=== PATIENT | male | born 1960 | race Caucasian/White ===

== ENCOUNTER 2022-06-11 15:45 | Emergency (ER) | payer MEDICARE, BC, SELFPAY ==
[2022-06-11] VITALS (10 sets, daily range): BP systolic 128–140; BP diastolic 68–92; PULSE 56–85; RESP 17–18; TEMP 36.2; O2SAT 95–99
--- NOTE | ~2022-06-11 | CT_ITS ---
EXAMINATION: CT brain wo con DATE: 06/11/2022 19:55 INDICATION: Memory loss. TECHNIQUE: Computed tomography (CT) of the head was performed without intravenous contrast. The dose- length product was 681.00 mGy-cm. Automated exposure control and iterative reconstruction technique w ere employed. COMPARISON: None FINDINGS: Brain parenchymal volume is normal for age. There are scattered mild periventricular and franklin bcortical white matter changes, most likely related to small vessel ischemic disease (microangiopathy ). No ventriculomegaly or midline shift. Basilar cisterns are patent. No acute infarction, hemorrhage or mass. There is an old fracture of the left lamina papyracea. Paranasal sinuses and mastoids are p neumatized. IMPRESSION: 1. No acute intracranial abnormality. Reviewed, dictated and finalized at location A. DELIVERER
--- NOTE | 2022-06-11 19:10 | PC.NURSE ---
Patient report given to KACY Garcia. All questions answered and care of patient transferred.
--- NOTE | 2022-06-11 19:37 | ED.GENADULT ---
HPI - General Adult General Chief complaint: Unspecified <Katarzyna Dan MD - Last Filed: 06/14/22 22:39> Stated complaint: n/v/bipolar/unable to take meds <Katarzyna Dan MD - Last Filed: 06/14/22 22:39> Time Seen by Provider: 06/11/22 17:34 <Katarzyna Dan MD - Last Filed: 06/14/22 22:39> History of Present Illness HPI narrative: 62M presenting with medication noncompliance. reports extensive psychiatric history involving hospitalization in 2014 that resulted in pt jumping out of 4th story window in attempt for suicidie. Pt's reports the pt hasn't been taking his meds as prescribed and as been refusing to eat/drink. States similar episode occurred two months prior. Currently, Pt denies complaints. Denies SI/HI Spoke with Dr Hughes, document controller for Dr. Shanique Villegas in [place], [place]. States pt is very labile and is a high flight risk. <Katarzyna Dan MD - Last Filed: 06/14/22 22:39> Related Data Home medications: Home Medications Medication Instructions Recorded Confirmed levetiracetam 750 mg tablet 1,500 mg PO BID 06/12/22 06/12/22 lithium carbonate 300 mg capsule 900 mg PO HS 06/12/22 06/12/22 oxcarbazepine 300 mg tablet 300 mg PO 06/12/22 oxybutynin chloride 5 mg tablet 5 mg PO 06/12/22 06/12/22 pregabalin 300 mg capsule 300 mg PO BID 06/12/22 06/12/22 tamsulosin 0.4 mg capsule 0.4 mg PO 06/12/22 <Katarzyna Dan MD - Last Filed: 06/14/22 22:39> Allergies/adverse reactions: Allergies Allergy/AdvReac Type Severity Reaction Status Date / Time iohexol Allergy Vomiting Verified 06/11/22 18:37 [From contrast - CT, X-RAY] <Katarzyna Dan MD - Last Filed: 06/14/22 22:39> Review of Systems Review of Systems: All systems reviewed & are unremarkable except as noted in HPI and below <Katarzyna Dan MD - Last Filed: 06/14/22 22:39> [facility] Social History Social History: Social History Substance use type: does not use <Katarzyna Dan MD - Last Filed: 06/14/22 22:39> Exam Const: General: no acute distress, well developed and alert <Katarzyna Dan MD - Last Filed: 06/14/22 22:39> HENMT: Head: normal to inspection <Katarzyna Dan MD - Last Filed: 06/14/22 22:39> Eyes: General: appearance normal, both eyes and all related structures <Katarzyna Dan MD - Last Filed: 06/14/22 22:39> Neck: Neck: full ROM <Katarzyna Dan MD - Last Filed: 06/14/22 22:39> Resp: Effort & Inspection: normal respiratory effort and able to speak in complete sentences <Katarzyna Dan MD - Last Filed: 06/14/22 22:39> Cardio: Rate: regular rate <Katarzyna Dan MD - Last Filed: 06/14/22 22:39> Rhythm: regular rhythm <Katarzyna Dan MD - Last Filed: 06/14/22 22:39> GI: GI Palp: Yes Soft to palpation and No Tenderness to palpation present (GI) <Katarzyna Dan MD - Last Filed: 06/14/22 22:39> Skin: General skin exam: normal color and no rashes or lesions noted <Katarzyna Dan MD - Last Filed: 06/14/22 22:39> Neuro: General: oriented to person, oriented to place, oriented to time, patient oriented x3, no focal motor deficits and CN's II-XI intact bilaterally <Katarzyna Dan MD - Last Filed: 06/14/22 22:39> Course Course Emergency Course: 1900: I assumed care of this patient at 0700 on 06/12/22. There have been no issues. We are waiting for placement. Apparently patient is bipolar and has not felt safe to be discharged home. He was evaluated by crisis and made involuntary admission. Family is supportive of this. Son has been in the patient's room throughout the day. We have restarted some home medications. Patient is considered medically stable for admission to psychiatric facility. Urine does not indicate infection in my opinion and white blood cell count is only mildly elevated and patient is without symptoms. Though patient was n
[2022-06-11 20:12] LABS: Basophils Percent Auto 0.1 % (0.2-1.2); Eosinophils Percent Auto 0.2 % (0-4.4); Hematocrit 49.9 % (42.0-52.0); Hemoglobin 16.7 g/dL (14.0-18.0); Immature Granulocyte Absolute 0.04 K/mm3 (0.00-0.031); Immature Granulocyte Percent A 0.3 % (0-0.5); Lymphocytes Absolute Auto 1.12 K/mm3 (0.9-3.2); Lymphocytes Percent Auto 8.4 % (18.3-44.2); Mean Corpuscular HGB Conc 33.5 g/dl (32-36); Mean Corpuscular Volume 89.7 fl (80-100); Mean Platelet Volume 10.2 fl (7.4-10.4); Monocytes Absolute Auto 0.8 K/mm3 (0.1-0.6); Monocytes Percent Auto 6.2 % (2.6-8.5); Neutrophils Absolute Auto 11.4 K/mm3 (1.3-6.7); Neutrophils Percent Auto 84.8 % (45.5-73.1); Platelet Count Result 282 k/mm3 (150-375); Red Blood Count 5.56 M/mm3 (4.6-6.20); Red Cell Distribution Width 13.3 % (11.5-14.5); White Blood Count 13.4 K/mm3 (4.5-10.0)
[2022-06-11 20:22] LABS: Ethanol < 10 mg/dL (<10)
[2022-06-11 20:25] LABS: Lithium 0.3 mmol/L (0.6-1.2)
[2022-06-11 20:36] LABS: Alanine Aminotransferase 27 U/L (6-50); Albumin Level 5.1 g/dL (3.5-5.1); Alkaline Phosphatase 78 U/L (38-126); Anion Gap 10 mmol/L (8-16); Aspartate Amino Transferase 30 U/L (17-59); Blood Urea Nitrogen 14 mg/dL (9-20); Calcium 9.6 mg/dL (8.4-10.2); Carbon Dioxide 19 mmol/L (22-30); Chloride 107 mmol/L (98-107); Estimated CRCL calculation 94 ml/min; Estimated Glomerular Filt Rate > 60; Glucose 121 mg/dL (65-110); Potassium 4.1 mmol/L (3.4-5.0); Sodium 136 mmol/L (137-145)
[2022-06-11 20:38] LABS: Appearance Urine Clear (Clear); Bilirubin Urine 2+ (Negative); Blood Urine Trace-intact (Negative); Color Urine Yellow (Yellow); Glucose Urine UA Negative (Negative); Ketones Urine 3+ mg/dL (Negative); Leukocyte Esterase Ur Trace LEU/UL (Negative); Nitrate Urine Negative (Negative); Protein Urine 1+ mg/dL (Negative); Specific Grav Ur >= 1.030 (1.001-1.035); Urobilinogen Urine 0.2 mg/dL (<2.0); pH Urine 5.5 (5.0-9.0)
[2022-06-11 20:43] LABS: Squamous Epithelial Cell Urine Occasional /hpf (Few)
[2022-06-11 20:48] LABS: Add Urine Microscopic? YES
[2022-06-11 20:48] LABS: Influenza A QL RT-PCR Negative (Negative); Influenza B QL RT-PCR Negative (Negative); RSV RNA, RT-PCR Negative (Negative); SARS-CoV-2 RNA PCR Negative
[2022-06-11 20:57] LABS: Amphetamine Screen Urine Negative (Negative); Barbiturate Screen Urine Negative (Negative); Benzodiazepines Screen Urine Negative (Negative); Cannabinoid Screen Urine Positive (Negative); Cocaine Screen Urine Negative (Negative); Methadone Screen Urine Negative (Negative); Opiate Screen Urine Negative (Negative); Phencyclidine Screen Urine Negative (Negative)
--- NOTE | 2022-06-11 21:18 | PC.NURSE ---
call placed to [place] crisis. They state they will sent area field worker to evaluate
[2022-06-11] MEDS: HALOPERIDOL LACTATE 5 MG/ML VIAL IM (23:59)
[2022-06-11] MEDS: LORazepam INJ (*CRX) 2 MG/ML VIAL IM (23:59)
--- NOTE | 2022-06-12 00:06 | PC.NURSE ---
patient becoming aggressive with son and trying to leave room. medications given per orders.
[2022-06-12 00:19] VITALS: BP 129/72; PULSE 79; O2SAT 99
--- NOTE | 2022-06-12 00:50 | PC.NURSE ---
paperwork faxed to [employer] at this time.
--- NOTE | 2022-06-12 01:24 | PC.NURSE ---
son took all clothes and cane home with him. Glasses left at bedside.
[2022-06-12 09:16] VITALS: BP 132/74; PULSE 70; RESP 18; O2SAT 95
--- NOTE | 2022-06-12 10:35 | PC.NURSE ---
Nayeli from [facility] intake called and discussed patient for intake. Recent set of vital signs given, update on patient status and behaviors described for this am. They will call back with update regarding acceptance of patient. [place] also checked in for update on patient also.
[2022-06-12 11:24] VITALS: BP 127/82; PULSE 93; RESP 18; O2SAT 98
--- NOTE | 2022-06-12 16:48 | PC.NURSE ---
chart was faxed to [facility] at [phone], and to Paula at [phone] at this time.
[2022-06-12 17:03] VITALS: BP 122/77; PULSE 60; RESP 18; O2SAT 96
[2022-06-12] MEDS: oxyBUTYnin CHLORIDE 5 MG TABLET PO (18:20)
--- NOTE | 2022-06-12 18:57 | PC.NURSE ---
[facility] in [place] called and stated that they do not have any bed tonight
--- NOTE | 2022-06-12 19:33 | PC.NURSE ---
Addendum entered by Sunitha Lui RN 06/12/22 19:53: Received call from [facility] at approximately 1920 requesting statement of EDP of medical clearance, s/s supporting psychosis, and medication list if available. Chart faxed with requested items at this time to fax number of Paula at [phone]. Original Note: Received call from [facility] at approximately 1920 requesting statement of EDP of medical clearance, s/s supporting psychosis, and medication list if available.
[2022-06-12 20:18] VITALS: BP 115/65; PULSE 67; RESP 16; O2SAT 99
[2022-06-12] MEDS: PREGABALIN (*CRX) 75 MG CAPSULE 300 MG PO (20:48)
[2022-06-12] MEDS: levETIRAcetam 500 MG TABLET 1500 MG PO (20:48)
[2022-06-12] MEDS: LITHIUM CARBONATE 300 MG CAPSULE 900 MG PO (20:48)
--- NOTE | 2022-06-12 20:56 | PC.NURSE ---
April, staff from [facility], called with accepting, DR. Ansari. Report to be called in 30 minutes at [phone].
--- NOTE | 2022-06-12 21:24 | PC.NURSE ---
attempt home and cell phone number of spouse, Radha, to notify of accepting facility and consent for transport.
--- NOTE | 2022-06-12 21:54 | PC.NURSE ---
Addendum entered by Maryann Savage 06/13/22 06:22: 0223: CALLED [facility] FOR BLS TRANSPORT TO [facility] (#[id number]). ETA [phone]: CALLED FOR ETA STATUS....NEW ETA IS NOW 1100. Addendum entered by Maryann Savage 06/13/22 01:01: 0055: Cancelled [facility] due to paperwork filled out improperly and delayed ETA for completion. Addendum entered by Maryann Savage 06/13/22 00:11: NOTE: Court paperwork filled out improperly. Called [facility] and informed them that if they could come at 0200 or after it would be fine. Original Note: 2134: Called [facility] for BLS transport to [facility]....N/A 2138: Called [facility]...ETA 0100
--- NOTE | 2022-06-12 22:20 | PC.NURSE ---
Called Paula at [phone], ED, who transferred call to Behavioral [facility], spoke with staff who stated that they have not received any info on pt from intake and will call back for report at later time. Will f/u within the pt. Pt has no request since last update at this time and family has not called for any update at this time.
--- NOTE | 2022-06-12 23:15 | PC.NURSE ---
[facility] called at this time and requested corrections to petition. Crisis called at this time for counselor to be contact and report to facility for corrections.
--- NOTE | 2022-06-13 00:30 | PC.NURSE ---
Crisis here for paperwork fix for pt and states that paper work will have to be redone at this time. Pt reassessed and crisis confirms to hold to involuntary at this time. EMS called and cancelled at this time due to unfinished paperwork at this time.
--- NOTE | 2022-06-13 03:11 | PC.NURSE ---
Report given to KACY Hoover at this time and reported ETA for transport at 0600 this morning.
[2022-06-13 04:16] VITALS: BP 115/83; PULSE 76; RESP 16; TEMP 37; O2SAT 98
[2022-06-13 06:40] VITALS: BP 105/72; PULSE 77; RESP 16; O2SAT 96
--- NOTE | 2022-06-13 07:18 | PC.NURSE ---
Report given to KACY Shepard.
[2022-06-13 08:25] VITALS: BP 94/63; PULSE 60; RESP 18; O2SAT 98
[2022-06-13] MEDS: levETIRAcetam 500 MG TABLET 1500 MG PO ×2 (10:15→21:11)
[2022-06-13] MEDS: oxyBUTYnin CHLORIDE 5 MG TABLET PO ×3 (10:15→19:47)
[2022-06-13] MEDS: TAMSULOSIN HCL 0.4 MG CAPSULE PO (10:16)
--- NOTE | 2022-06-13 11:04 | PC.NURSE ---
Pt family here at bedside, per son and POA ( ) pt is back to his normal. pt family do not want placement anymore and are requesting pt to be reevaluated per CRISIS. Crisis has been called and someone will come and reevaluate pt, transportation has been canceled. Pt is alert and oriented x4, eating and drinking ok, denies any SI.
--- NOTE | 2022-06-13 19:19 | PC.NURSE ---
1909 Assumed pt care from KACY Oates
[2022-06-13] MEDS: LITHIUM CARBONATE 300 MG CAPSULE 900 MG PO (21:11)
[2022-06-13] MEDS: PREGABALIN (*CRX) 75 MG CAPSULE 300 MG PO (21:11)
[2022-06-14 04:10] VITALS: BP 109/77; PULSE 54; RESP 16; O2SAT 98
== END 2022-06-14 04:19 | disposition home or self-care (01) ==
PROVIDERS: Emergency Provider Emergency Medicine; PCP Internal Medicine
DX: F31.9 Bipolar disorder, unspecified (principal); F29 Unspecified psychosis not due to a substance or known physiological condition; N39.0 Urinary tract infection, site not specified; Z20.822 Contact with and (suspected) exposure to COVID-19; T50.916A Underdosing of multiple unspecified drugs, medicaments and biological substances, initial encounter; Z91.128 Patient's intentional underdosing of medication regimen for other reason; Z79.899 Other long term (current) drug therapy
CPT/HCPCS: 36415; 70450; 80053; 80178; 80307; 81001; 84443; 85025; 87086; 87637; 96372; 99284; A9270; J1630; J2060